=== PATIENT | male | born 1985 | race Caucasian/White ===

== ENCOUNTER 2025-04-16 19:43 | Emergency (ER) | payer OTHER, SELFPAY ==
[2025-04-16 19:43] VITALS: BP 127/83; PULSE 102; RESP 20; TEMP 39.4; O2SAT 100; BMI 22.6
--- NOTE | 2025-04-16 20:44 | EX.ED.DYSGE1 ---
HPI History of Present Illness Chief Complaint: Fever Narrative Narrative: 40-year-old male who denies significant past medical history states he has had a fever as high as 105 106 degrees for the last few days. He has been taking 400 mg of Advil without relief. States he went to urgent care today and had a strep test performed that immediately returned positive. He complains of sore throat worse with swallowing and fever as well. He started antibiotics today. However, whenever he gets up, his fever will be as high as 105 ?F. He last took 400 mg of Advil a few hours ago, but he states it is upsetting his stomach. He presents because of continued high fever. PFSH PFSH Allergy/AdvReac Type Severity Reaction Status Date / Time No Known Allergies Allergy Verified 04/16/25 19:47 Social History Smoking Status: Unknown if ever smoked ROS ROS ED ROS Narrative Review of systems is positive for fever as high as 105 to 106 ?F, fluctuating, worse with movement. He has chills as well. He has sore throat worse with swallowing, diagnosed at urgent care today with strep throat. Pain worse with swallowing. No difficulty breathing. EXAM Physical Exam Narrative Exam Narrative: Temperature 103 ?F. Nontoxic-appearing. HEENT examination shows mild pharyngeal erythema, no drooling or trismus. Airway patent. Neck soft and supple without meningismus. PERRL, EOMI. Cardiovascular examination reveals mild tachycardia at 102 bpm. Lungs are clear to auscultation bilaterally. Abdomen is soft and nontender without guarding or rebound. Neurological examination nonfocal, nonlateralizing. Const Vital Signs: 04/16/25 19:43 04/16/25 20:04 04/16/25 21:44 Temperature 103 F H 98.4 F Temperature Source Oral Oral Pulse Rate 102 H Respiratory Rate 20 H Respiratory Effort Normal Non-Labored Respiratory Pattern Normal Blood Pressure 127/83 H Blood Pressure Mean 97 Pulse Ox 100 Oxygen Delivery Method Room Air 04/16/25 22:31 04/16/25 22:44 Temperature 98.4 F Temperature Source Pulse Rate 72 72 Respiratory Rate 15 15 Respiratory Effort Respiratory Pattern Blood Pressure 103/68 103/68 Blood Pressure Mean 79 79 Pulse Ox 98 98 Oxygen Delivery Method Room Air MDM MDM MDM Narrative Medical decision making narrative: Patient has diagnosis of strep throat. I had a lengthy discussion with the patient. He was told that fever in itself is a sign that his body is trying to fight the infection. He will be given Toradol 30 mg intravenously and a bolus of normal saline. He is already on antibiotics for strep throat. I do not feel that he requires any imaging of his neck as there is no airway compromise. I did discuss with him the possibility of penicillin intramuscular injection so that he would not have to take any more pills. He declined. He did state that when he was in college, he felt the same way and had intractable fever and reported that he was given a dose of morphine which broke his fever. I do not feel narcotic pain medication is indicated as it has no antipyretic feature. He will be reassessed after Toradol and IV fluid bolus. Upon repeat examination he is resting comfortably and his fever has broken with temperature now 98.4. He states he feels improved. At this point in time, I feel he can be discharged to follow-up with his primary care provider. He was instructed to finish the antibiotics that were started by urgent care for his reported confirmed strep pharyngitis. He will drink plenty of oral fluids. He will use Tylenol instead of NSAIDs as it might be causing a gastritis/upset stomach. He was told to not exceed a maximum of 3000 mg of acetaminophen in a 24-hour period. I feel he can be discharged to follow-up. Return instructions reviewed. Disposition is discharged home in stable condition. Discharge Plan Triage Chief Complaint: Fever ED Provider: Luis A Moya Dx/Rx/DC Orders Clinical Impression: Strep pharyngitis, Fever Instructions: ED Fever Control (Adult), ED Pharyngitis, Strep (Confirmed) Primary Care Provider: Leticia Vance Referrals: Leticia Vance, [employer] [Primary Care Provider, Medical] - 3-5 Days if not improving Activity Restrictions/Additional Instructions: Take the antibiotics as directed by urgent care. Continue Tylenol as needed for fever or pain. You can take up to 3000 mg by mouth in a 24-hour period as NSAIDs are upsetting her stomach. Drink plenty of oral fluids. Follow-up with your primary care provider. Return with new or worsening symptoms. Print Language: Portuguese Disposition Disposition: Home, Self Care
[2025-04-16] MEDS: 0.9% Normal Saline (1000mL) 1,000 ML 999 ML IV (20:53)
[2025-04-16] MEDS: Ketorolac 30 MG/ML Syringe IV (20:53)
[2025-04-16 21:44] VITALS: TEMP 36.9
[2025-04-16 22:31] VITALS: BP 103/68; PULSE 72; RESP 15; O2SAT 98
[2025-04-16 22:44] VITALS: BP 103/68; PULSE 72; RESP 15; TEMP 36.9; O2SAT 98
== END 2025-04-16 22:52 | disposition home or self-care (01) ==
PROVIDERS: Emergency Provider Emergency Medicine; PCP Nurse Practitioner Family; Visit Provider Emergency Medicine
DX: J02.0 Streptococcal pharyngitis (principal); R50.9 Fever, unspecified
CPT/HCPCS: 96361; 96374; 99283; A4216